=== PATIENT | male | born 2000 | race Caucasian/White ===

== ENCOUNTER 2018-02-04 11:27 | Emergency (ER) | payer SELFPAY ==
[2018-02-04] VITALS (9 sets, daily range): BP systolic 124–160; BP diastolic 73–94; PULSE 61–89; RESP 14–18; TEMP 36.6; O2SAT 97–99; BMI 22.6
[2018-02-04 12:04] LABS: Amphetamine Urine VISTA NEGATIVE (<1000 ng/mL); Barbiturate Urine VISTA NEGATIVE (< 200 ng/mL); Benzodiazepine Urine VISTA NEGATIVE (< 200 ng/mL); Cocaine Urine VISTA NEGATIVE (< 300 ng/mL); Ecstacy Urine VISTA NEGATIVE (< 500 ng/mL); Methadone Urine VISTA NEGATIVE (< 300 ng/mL); PCP Urine VISTA NEGATIVE (< 25 ng/mL); THC Urine VISTA POSITIVE (< 50 ng/mL); Vista UDS pH Range 7
[2018-02-04 12:12] LABS: Absolute Lymphocyte Count 3.18 X10^3/ul (0.83-4.51); Absolute Neutrophil Count 3.6 X10^3/uL (2.0-7.7); Basophil# 0.05 X10^3/uL; Basophil% 0.7 % (0-1); Eosinophil# 0.22 X10^3/uL; Eosinophils% 2.9 % (0-5); Hemoglobin 13.8 g/dl (13.0-16.5); Lymphocyte # 3.18 X10^3/ul (4.0); Lymphocyte % 42.3 % (19-41); Mean Corp Hgb Conc 33.7 g/gl (32-36); Mean Corpuscular Hgb 26.4 pg (27.0-32.0); Mean Corpuscular Volume 78.5 fL (80-94); Mean Platelet Vol. 10.2 fl (6.2-12.0); Monocyte# 0.43 X10^3/uL; Monocyte% 5.7 % (0-10); Neutrophil # 3.62 X10^3/uL (2.7-7.7); Neutrophil % 48.3 % (47-70); Platelet Count 317 K/mm3 (150-450); RBC Distribution Width CV 15.3 % (11.6-14.6); RBC Distribution Width SD 43.8 fl (35.1-43.9); Red Blood Count 5.22 M/mm3 (4.6-6.2); White Blood Count 7.5 K/mm3 (4.4-11.0)
[2018-02-04 12:14] LABS: POSITIVE COUNT NO; POSITIVE DIFFERENTIAL NO; POSITIVE MORPHOLOGY NO
[2018-02-04 12:17] LABS: Anion Gap 6 (5-15); BUN 11 mg/dL (7-18); BUN/Creat Ratio 10.7 RATIO (10-20); Calcium,Total 9.1 mg/dL (8.5-10.1); Chloride 104 mmol/L (98-107); Creatinine, Serum 1.03 mg/dL (0.70-1.30); EST Glomerular Filtration Rate 98 mL/min (>60); Est Glom Filt Rate - Afr Amer 118 mL/min (>60); Estimated Creatinine Clearance 116.93 ml/min; Glucose 83 mg/dL (74-106); Sodium Level 140 mmol/L (136-145)
--- NOTE | 2018-02-04 13:04 | ED.VISSUMM ---
- ER Visit Summary Date of Service: 02/04/18 Chief Complaint: [Homicidal ideation] History of Present Illness: The patient is a 17 M [since the emergency department from visit with [facility] facility. 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 Today he discussed that he was having thoughts about killing people. He gives an example yesterday of having a conversation with his grandmother and having visions of wanting to beat her to . He has had thoughts of grabbing the steering wheel while driving and turning it in order to kill everybody and he feels like he would be okay with that. Patient is not acted out in any way as of yet. Patient is starting to feel like he may not be able to control his urges. He denies any suicidal ideation. He denies any hallucinations. Denies recent illness.] Physical Examination: [HEENT-PERRLA, EOMI. Cranial nerves II through XII grossly intact. TMs clear. Mucous membranes moist. No adenopathy. Cardiovascular-regular rate and rhythm without murmur or ectopy Lungs-clear to auscultation, chest wall stable without crepitus or subcu emphysema Abdomen-normoactive bowel sounds, soft, nontender, no rebound or rigidity, no peritoneal signs. Extremities-intact ?4, normal range of motion, normal pulses, atraumatic] Test Results: [CBC with differential was normal. Chemistries were normal. Toxicology screen was positive for marijuana. Alcohol was negative.] Emergency Department Course and Treatment: [Patient evaluated by crisis.] Treatment Plan: [Patient was evaluated by crisis and felt patient required emergent hospitalization and I am in agreement. Patient will be transferred to psychiatric facility and care turned over to evening physician awaiting transfer. Patient did have to be medicated with Geodon and Ativan] Disposition: [Transfer] Impression: [Psychosis Homicidal ideation] This note was generated with [employer] dictation software. It may contain incorrect words, spelling, and punctuation that were not noted in review of the chart prior to signing ED Disposition - Plan for ED Patient: Chief Complaint: Mental Health Referrals: Care Physician,No Primary [Primary Care Provider] -
--- NOTE | 2018-02-04 13:59 | ED.RN ---
[facility] NOTIFIED PT WAS READY TO BE SEEN.
--- NOTE | 2018-02-04 14:38 | EKGRS_ITS ---
Test Reason : [facility] [place] Blood Pressure : / mmHG Vent. Rate : 071 BPM Atrial Rate : 071 BPM P-R Int : 138 ms QRS Dur : 098 ms QT Int : 364 ms P-R-T Axes : -10 058 047 degrees QTc Int : 395 ms Normal sinus rhythm Normal ECG Confirmed by KEYON OBRIEN, SUSANA ([id number]), market editor LEIA DOSHI ([id number]) on 02/10/2018 3:37:45 PM Referred By: CASIMIRO Confirmed By:SUSANA TA MD
[2018-02-04] MEDS: LORazepam 2 MG/ML Syringe IM (15:49)
[2018-02-04] MEDS: Ziprasidone IM 20 MG/ML VIAL IM (15:49)
--- NOTE | 2018-02-04 16:28 | ED.RN ---
pt voices in triage that he does have hx of suicidal attempt and consideration. states not suicidal at this moment
--- NOTE | 2018-02-04 16:38 | CT_ITS ---
STUDY: CT BRAIN WITHOUT CONTRAST REASON FOR EXAM: Male, 17 years old. Altered mental status RADIATION DOSAGE (If Supplied By Facility): CTDIvol = ( 44.99 ) mGy, DLP = ( 1524.73 ) mGycm TECHNIQUE: Transaxial CT imaging of the brain was performed without administration of intravenous contrast material. Individualized dose optimization techniques were used for this CT. COMPARISON: None. FINDINGS: There is no acute bleed or infarct. There are normal white matter tracts. The ventricles are normal in configuration. There is no hydrocephalus. The visualized paranasal sinuses are clear. The mastoid air cells are well aerated. There is no skull fracture. CT/Brain/Head without Contrast IMPRESSION: No acute intracranial abnormality. Electronically Signed: Brooks Purvis, at 17:04 EDT Tel , Service support ,
--- NOTE | 2018-02-04 20:08 | ED.RN ---
This RN read the crisis counselor's evaluation on the patient. The evaluation states thoughts of suicide. This RN was told the patient denied suicide. This RN asked the pt if he had thoughts of harming himself. The pt denied thoughts of suicide.
--- NOTE | 2018-02-04 21:05 | ED.RN ---
Crisis evaluated patient and is preparing to leave department. Endy stated I am leaving and another Crisis radiation control worker will be in. He recommened we medicate the patient. When asked if we needed a sitter to be present with the patient he answered no. That the patient was not suicidal, but homicidal with acute psychosis. Pt was medicated and ct ordered by to rule out tumor. Bunk Foss will be contacted with results of ct and labs. Shellie Adrian RN [id number]
--- NOTE | 2018-02-04 22:50 | ED.RN ---
[facility] DOES NOT HAVE A SQUAD AVAILABLE
== END 2018-02-05 00:10 ==
PROVIDERS: Emergency Provider Emergency Medicine
DX: F29 Unspecified psychosis not due to a substance or known physiological condition (principal); R45.850 Homicidal ideations; Z72.0 Tobacco use
CPT/HCPCS: 70450; 80048; 80307; 80320; 85025; 93005; 99285; G0480; J3486

== ENCOUNTER 2019-03-07 15:54 | Emergency (ER) | payer SELFPAY ==
[2019-03-07 15:55] VITALS: BP 133/85; PULSE 94; RESP 16; TEMP 36.2; O2SAT 100; BMI 23.9
--- NOTE | 2019-03-07 16:18 | ED.VIS.GEN ---
History of Present Illness Chief Complaint: Cough Informant: Patient Onset: Days Current Severity: Mild Narrative: Patient presents reporting he had a cough for a day or 2 he missed work his work [employer] will not let him return to work until he has a doctor's release He has no complaints his cough is better he has no past history Past Medical History - Allergies and Home Meds Allergies/Adverse Reactions: Allergies No Known Allergies Allergy (Verified 03/07/19 15:54) Primary Care Physician: Care Physician,No Primary [Primary Care Provider] - Past Medical History: - Smoking Status: Current every day smoker Review of Systems ROS: - None General: Denies: Chills, Fever, Sweats Eyes: Denies: Visual changes - bilaterally, Diplopia ENT: Denies: Rhinorrhea, Sore throat Cardiovascular: Denies: Chest pain, Palpitations Respiratory: Reports: Cough. Denies: Dyspnea, Dyspnea on exertion Gastrointestinal: Denies: Abdominal pain, Nausea, Vomiting, Diarrhea, Melena, Hematochezia Genitourinary: Denies: Dysuria, Hematuria, Frequency Musculoskeletal: Denies: Back pain, Extremity Pain Skin: Denies: Rash, Wounds Neurological: Denies: Headache, Weakness, Numbness Physical Exam Vital Signs/Narrative: Vital Signs Temp Pulse Resp BP Pulse Ox 03/07/19 15:55 97.2 F L 94 16 133/85 H 100 General: Well nourished, Well developed, No Acute Distress, - - Is in no distress his physical exam vital signs HEENT lung exam cardiac exam general medical exam entirely unremarkable see above Head: Normocephalic, Atraumatic Eyes: Perrl, EOMI ENT: Moist mucous membranes, No rhinorrhea Neck: Supple, Nontender Cardiovascular: Regular rate, Regular rhythm, No murmurs Respiratory: No distress, CTA bilaterally, Chest nontender Abdomen: Soft, Nontender, Nondistended, Normal bowel sounds Back: Nontender, Normal Inspection Extremities: Nontender, No edema Skin: Normal color, No rash Neurological: Alert, Oriented x3, Cranial nerves II-XII grossly intact, Normal Strength, Normal Sensation Psychological: Normal affect, Normal Mood Diagnostic/Tx/Re-eval - Medical Decision Making Patient indicates his cough is resolved his physical exam is unremarkable explained at this point time there is no indication for the emergency department provide more work release he will be given documentation that he was here in the emergency department Home stable Impression final Cough resolved ED Disposition - Plan for ED Patient: Diagnosis: Cough Instructions: BRONCHITIS, No Antibiotic (Adult) Referrals: Care Physician,No Primary [Primary Care Provider] - Daphnie Davis [NON-STAFF] -
== END 2019-03-07 16:40 | disposition home or self-care (01) ==
PROVIDERS: Emergency Provider Emergency Medicine
DX: R05 Cough (principal); F17.200 Nicotine dependence, unspecified, uncomplicated
CPT/HCPCS: 99282